=== PATIENT | female | born 1950 | race Caucasian/White ===

== ENCOUNTER 2019-07-11 11:56 | Outpatient (CLI) | payer MEDICARE, SELFPAY ==
[2019-07-11 13:20] LABS: Alanine Aminotransferase 36 U/L (4-35); Aspartate Amino Transferase 30 U/L (14-36)
== END 2019-07-11 11:57 | disposition home or self-care (01) ==
PROVIDERS: PCP Internal Medicine; Visit Provider Podiatrist Foot & Ankle Surgery
DX: B35.1 Tinea unguium (principal); I10 Essential (primary) hypertension
CPT/HCPCS: 36415; 84450; 84460